=== PATIENT | male | born 1990 | race Caucasian/White ===

== ENCOUNTER 2022-09-03 10:28 | Outpatient (OUT) | payer OTHER, SELFPAY ==
[2022-09-03 11:20] LABS: Alanine Aminotransferase 68 U/L (16-63); Albumin Globulin Ratio 1.1; Albumin Level 4.4 g/dL (3.4-5.0); Alkaline Phosphatase 81 U/L (46-116); Aspartate Amino Transferase 24 U/L (15-37); Bilirubin Direct 0.2 mg/dL (0.0-0.2); Globulin 4.1 g/dL; Total Protein 8.5 g/dL (6.4-8.2)
[2022-09-04 07:35] LABS: HBsAg Screen Negative (Negative); HCV Ab Non Reactive (Non Reactive); Hep A Ab, IgM Negative (Negative); Hep B Core Ab, IgM Negative (Negative)
== END 2022-09-03 10:29 ==
PROVIDERS: PCP Family Medicine; Visit Provider Family Medicine
DX: R79.89 Other specified abnormal findings of blood chemistry (principal)
CPT/HCPCS: 36415; 80074; 80076

== ENCOUNTER 2022-10-30 13:26 | Outpatient (OUT) | payer OTHER, SELFPAY ==
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
== END 2022-10-30 13:27 | disposition home or self-care (01) ==
PROVIDERS: PCP Family Medicine; Visit Provider Nurse Practitioner Family
DX: R07.9 Chest pain, unspecified (principal)
CPT/HCPCS: 71046

== ENCOUNTER 2022-12-17 11:04 | Outpatient (OUT) | payer SELFPAY ==
--- NOTE | 2022-12-17 11:12 | XR_ITS ---
The [address] [address] Patient Name: MARIA OTTO MRN: [id number] date: 1990 Sex: M Assigned Patient Location: RAD Current Patient Location: RAD Accession/Order Number: [id number] Exam Date: 12/17/2022 11:12 Report Date: 12/17/2022 12:16 At the request of: TEO FARFAN Procedure: XR ribs LT min 3V w CXR1V EXAMINATION: XR ribs LT min 3V w CXR1V HISTORY: Chest Pain At Rest R07.9 COMPARISON: XR chest 10/30/2022 FINDINGS: LUNGS: No significant pulmonary parenchymal abnormalities. PLEURA: No pneumothorax, effusion, or pleural thickening. MEDIASTINUM: No visible mass or adenopathy. CARDIAC: No cardiomegaly or cardiac silhouette abnormality. RIBS: Normal. No significant arthropathy or acute abnormality. OTHER: Negative. XR/XR ribs LT min 3V w CXR1V IMPRESSION: 1. Clear lungs. 2. Normal appearance of the ribs. No specific findings to account for patient's symptoms. Electronically authenticated by: DEVAN MARIE Date: 12/17/2022 12:16
== END 2022-12-17 11:05 | disposition home or self-care (01) ==
PROVIDERS: PCP Family Medicine; Visit Provider Nurse Practitioner Family
DX: R07.9 Chest pain, unspecified (principal)
CPT/HCPCS: 71101